=== PATIENT | male | born 1980 | race Caucasian/White ===

== ENCOUNTER 2021-04-03 12:13 | Emergency (ER) | payer OTHER ==
[~2021-04-03] VITALS: Ht 185.4 cm; Wt 88.6 kg
[2021-04-03 12:15] VITALS: BP 140/67
--- NOTE | 2021-04-03 13:20 | PHYS DOC ---
Adult General Chief Complaint Chief Complaint: BACK PAIN OR INJURY [facility] HPI Patient is a 40-year-old male presenting for acute on chronic back pain. Has known bulging disc per prior MRI. He is active duty and in shape, states he was working out this morning doing body weight squats when he reag gravated his known left lower back injury. Reports this is happened to him in the past and responded well with IM pain and muscle relaxer medications. States he took an ibuprofen and x1 5 mg Flexeril this morning shortly after aggravation. Review of Systems Review of Systems Fourteen body systems of review of systems have been reviewed. See HPI for pertinent positives and negative responses, other alexandre all other systems are negative, non-pertinent or non-contributory Allergies Allergies Allergies Coded Allergies Type Severity Reaction Last Updated Verified No Known Drug Allergies 04/03/21 No Physical Exam Physical Exam Constitutional: Well developed, well nourished, no acute distress, non-toxic appearance. HENT: Normocephalic, atraumatic, bilateral external ears normal, oropharynx moist, no oral exudates, nose normal. Eyes: PERRLA, EOMI, conjunctiva normal, no discharge. Neck: Normal range of motion, no tenderness, supple, no stridor. Cardiovascular: Heart rate regular, sinus rhythm, no murmurs rubs or gallops Lungs & Thorax: Bilateral breath sounds clear to auscultation Abdomen: Bowel sounds normal, soft, no tenderness, no masses, no pulsatile masses. Nonsurgical abdomen, no peritoneal signs Skin: Warm, dry, no erythema, no rash. Back: No midline tenderness, no CVA tenderness. No step-off. Patient able to point to focal area of pain over left lower lumbar region. Extremities: No tenderness, no cyanosis, no clubbing, ROM intact, no edema. Neurologic: Alert and oriented X 3, normal motor & sensory function, no focal deficits noted. Downgoing toes bilaterally with 2+ patellar and Achilles reflexes Psychologic: Affect normal, judgement normal, mood normal. Current Patient Data Vital Signs Vital Signs Date Time Temp Pulse Resp B/P (MAP) Pulse Ox O2 Delivery O2 Flow Rate FiO2 04/03/21 12:15 98.0 67 16 140/67 100 Room Air Vital Signs Date Time Temp Pulse Resp B/P (MAP) Pulse Ox O2 Delivery O2 Flow Rate FiO2 04/03/21 12:15 98.0 67 16 140/67 100 Room Air EKG EKG [] Radiology/Procedures Radiology/Procedures [] Heart Score C/O Chest Pain: No Risk Factors: Risk Factors: DM, Current or recent (<one month) smoker, HTN, HLP, family history of CAD, obesity. Risk Scores: Risk Factors: DM, Current or recent (<one month) smoker, HTN, HLP, family history of CAD, obesity. Course & Med Decision Making Course & Med Decision Making ABCs, history and physical examination non-concerning. There are no red flag signs of back pain present. I have low suspicion for malignancy/mets, acute Spinal Fracture, Vertebral Osteomyelitis, Epidural Abscess, Infected or Obstructing Kidney Stone. Their presentation appears most likely to be secondary to non-emergent musculoskeletal etiology vs non-emergent disc herniation. ED Workup: Defer imaging and labwork for outpatient follow up at this time. Disposition: Discharge. Strict return precautions discussed with patient with full understanding. Advised patient to follow up promptly with primary care provider Cahty Disclaimer Cathy Disclaimer This electronic medical record was generated, in whole or in part, using a voice recognition dictation system. Departure Departure: Impression: Primary Impression: Acute exacerbation of chronic low back pain Disposition: HOME / SELF CARE / HOMELESS Condition: STABLE Referrals: GOMEZ JUÁREZ DO (PCP) Patient Instructions: Back Exercises, Back Pain, Adult Additional Instructions: You were evaluated in the Emergency Department today for back pain. Your evaluation suggests no acute abnormalities which require further intervention at this time. Your pain is most likely due reaggravation of your known lower back issues - Move around as tolerated but avoiding heavy lifting. ``Bed rest is not recommended nor is it the best treatment for low back pain. - Medications will help control your discomfort: - -Ibuprofen (600-800 mg every 8 hours for pain) with food. - -Tylenol - Do not drink alcohol, drive a car, operate machinery, or get up on ladders or heights when taking any prescribed pain medications. - Do not drive home if you received prescribed pain medications here in the ED. Return to the ED immediately if you develop any of the following problems: - Leaking urine or difficulty urinating; - Inability to control your bowels; - New numbness or weakness in your legs or numbness between your legs; - Inability to walk - Fever SARAH PEÑA DO Apr 03, 2021 13:20
[2021-04-03] MEDS ORDERED: ACETAMINOPHEN 500 MG TABLET PO ONE (13:30)
[2021-04-03] MEDS ORDERED: ORPHENADRINE CITRATE 60 MG/2 ML VIAL. IM ONE (13:30)
[2021-04-03] MEDS ORDERED: KETOROLAC 60 MG/2 ML VIAL. IM ONE (13:30)
== END 2021-04-03 13:57 | disposition home or self-care (01) ==
LOC: ER 12:13
DX: G89.29 Other chronic pain (principal); M54.5 Low back pain
CPT/HCPCS: 96372; 99284; J1885; J2360